=== PATIENT | female | born 1990 | race Caucasian/White ===

== ENCOUNTER 2016-08-04 13:16 | Emergency (ER) | payer BC, MEDICAID ==
--- NOTE | 2016-08-04 14:34 | UCPHY ---
[id number] CHIEF COMPLAINT: Sore throat HISTORY OF PRESENT ILLNESS: This is an immunocompetent 25-year-old female who has been ill for the last 9-10 days. Illness began with a cough that has now almost resolved. She occasionally coughs up phlegm that she describes as hard . However, her complaint today is of sore throat that has been present for the past few days, gradually worsening. She has had intermittent fever over the past few days. She also reports nasal congestion. She has had a mild headache. She does not have sinus pain or postnasal drip. She does not feel short of breath. She denies chest pain. She had a small swelling in front of her right ear a few weeks ago that was initially tender. The swelling persists but is no longer painful. He no earache or change in hearing. REVIEW OF SYSTEMS: A ten point review of systems was performed and is negative with the exception of the items mentioned in the HPI. Source: Patient Exam Limitations: No limitations - Personal History Tetanus Vaccine Date: < 10 years - Medical/Surgical History Hx Asthma: Yes Hx Chronic Respiratory Disease: No Hx Diabetes: No Hx Cardiac Disease: No Hx Renal Disease: No Hx Cirrhosis: No Hx Alcoholism: No Hx HIV/AIDS: No Hx Splenectomy or Spleen Trauma: No Other PMH: asthma. tonsillectomy. nausea. depression, bipolar, PTSD. insomnia - Family History Significant Family History: No pertinent family hx - Social History Smoking Status: Current every day smoker Additional Social History: She is here with her life partner. - Physical Exam Exam: General Appearance: Alert. Vital signs reviewed and normal. Eyes: Pupils equal and round, no conjunctival injection, no discharge. Anicteric. ENT, Mouth: Mucous membranes are moist, oropharynx is erythematous and mildly edematous. Her tonsils are absent. She is managing her secretions without difficulty. There is a small, 1 mm, papule in front of the right auricle. This is nontender. Neck: Mild anterior cervical lymphadenopathy, supple. Respiratory: Lungs are clear to auscultation; no wheezes, rales, or rhonchi. Cardiovascular: Regular rate and rhythm; no murmur, rub, or gallop. Gastrointestinal: Abdomen is soft and nontender, no masses or organomegaly, bowel sounds normal. Skin: Warm and dry, no rashes on exposed skin, normal color. Back: Nontender to palpation over the thoracolumbar spine. No CVAT. Extremities: No lower extremity edema, no calf tenderness or swelling. Neurological: Alert and oriented. Moving all four extremities easily and equally. Facial sensation intact to light touch. Psychiatric: Normal affect. Constitutional: Initial Vital Signs Temperature (C) 36.6 C 08/04/16 14:36 Heart Rate 62 08/04/16 14:36 Respiratory Rate 18 08/04/16 14:36 Blood Pressure 119/72 08/04/16 14:36 O2 Sat (%) 97 08/04/16 14:36 O2 Delivery Mode Room Air Allergies/Adverse Reactions: No Known Allergies Allergy (Verified 05/21/16 14:15) Home Medications: Medication Instructions Recorded PRILOSEC 03/15/16 Wellbutrin Sr 03/15/16 [place] Carbonate 05/21/16 Ondansetron Odt [Zofran Odt] 4 mg PO Q4PRN #8 tab 05/21/16 AZITHROMYCIN [Z-PACK] 500 mg PO DAILY #1 packet 08/04/16 Medical Decision Making ED Course/Re-evaluation: Healthy 25-year-old with almost 10 days of an upper respiratory/pharyngitis type illness. She is not toxic or ill-appearing. She is concerned about this illness because she is traveling to visit her elderly grandmother who has been ill. She does not want to relay an illness to her grandmother. After some discussion, I agreed to write a prescription for antibiotics. I did so after explaining that this is likely a viral illness and suggesting that she not fill the prescription unless she develops fever or worsening symptoms. Rapid strep testing was negative. She is able to manage her secretions, swallow, and remain hydrated. She has had her tonsils removed. I do not suspect retropharyngeal abscess or epiglottitis. She does not have other signs or symptoms of mononucleosis or influenza. Departure - Departure Disposition: Home, Routine, Self-Care Clinical Impression: Pharyngitis Qualifiers: Pharyngitis/tonsillitis etiology: unspecified etiology Qualifier Code: (J02.9) Acute pharyngitis, unspecified Condition: Good Instructions: Pharyngitis (ED) Referrals: Tee Madrigal MD [Primary Care Provider] - As per Instructions Prescriptions: AZITHROMYCIN [Z-PACK] 500 mg PO DAILY #1 packet - PQRS PQRS Measurement: Does not apply.
[2016-08-04 14:38] VITALS: BP 119/72; PULSE 62; RESP 18; TEMP 98; O2SAT 97
== END 2016-08-04 16:14 | disposition home or self-care (01) ==
LOC: CED 13:16
DX: J02.9 Acute pharyngitis, unspecified (principal); R09.81 Nasal congestion; F31.9 Bipolar disorder, unspecified; F43.10 Post-traumatic stress disorder, unspecified; J45.909 Unspecified asthma, uncomplicated; Z72.0 Tobacco use
CPT/HCPCS: 87880-PO; G0463-PO

== ENCOUNTER 2016-08-29 17:11 | Inpatient (IN) | payer BC, MEDICAID ==
[2016-08-29 17:55] LABS: % IMMATURE GRANULYOCYTES 0.3 % (0.0-1.1); ABSOLUTE IMMATURE GRANULOCYTES 0.02 10^3/uL (0.00-0.10); ADD DIFF? NO; ADD MORPH? NO; ADD SCAN? NO; ATYPICAL LYMPHOCYTE FLAG 30 (0-99); FRAGMENT RBC FLAG 0 (0-99); HEMATOCRIT 40.4 % (38.0-47.0); HEMOGLOBIN 13.9 g/dL (12.6-16.3); LEFT SHIFT FLG 0 (0-99); LIPEMIA HEMOLYSIS FLAG 90 (0-99); MEAN CELL HEMOGLOBIN 31.4 pg (27.9-34.1); MEAN CELL HEMOGLOBIN CONCENTR. 34.4 g/dL (32.4-36.7); MEAN CELL VOLUME 91.4 fL (81.5-99.8); MEAN PLATELET VOLUME 9.4 fL (8.7-11.7); PLATELET CLUMPS FLAG 10 (0-99); PLATELET COUNT 417 10^3/uL (150-400); RED BLOOD CELL COUNT 4.42 10^6/uL (4.18-5.33)
[2016-08-29 18:06] LABS: ANION GAP 9 mEq/L (8-16); CALCIUM 9.4 mg/dL (8.5-10.4); CARBON DIOXIDE 26 mEq/l (22-31); CHLORIDE 104 mEq/L (97-110); CREATININE 0.9 mg/dL (0.6-1.0); ETHANOL SERUM < 10 mg/dL (0-10); GLOMERULAR FILTRATION RATE > 60; GLUCOSE 76 mg/dL (70-100); LITHIUM 0.5 mEq/L (0.6-1.2); POTASSIUM 4.4 mEq/L (3.5-5.2); SALICYLATE < 1.0 mg/dL (2.0-20.0); SODIUM 139 mEq/L (134-144)
--- NOTE | 2016-08-29 18:20 | EDPHY ---
H & P Stated Complaint: MH eval SI Source: Patient Exam Limitations: No limitations - Personal History LMP (Females 10-55): Now Current Tetanus/Diphtheria Vaccine: Unsure Current Tetanus Diphtheria and Acellular Pertussis (TDAP): Unsure Tetanus Vaccine Date: < 10 years - Medical/Surgical History Hx Asthma: Yes Hx Chronic Respiratory Disease: No Hx Diabetes: No Hx Cardiac Disease: No Hx Renal Disease: No Hx Cirrhosis: No Hx Alcoholism: No Hx HIV/AIDS: No Hx Splenectomy or Spleen Trauma: No Other PMH: asthma. tonsillectomy. nausea. depression, bipolar, PTSD. insomnia - Social History Smoking Status: Current every day smoker HPI/ROS: CHIEF COMPLAINT: suicide ideation HISTORY OF PRESENT ILLNESS: notes increasing depression after Trileptal was added at the end of July. She feels that it has caused more cyclical highs and lows, increasing depression. Due to this she feels even more hopeless and depressed than she has in the past. She feels that she has been thinking about killing herself, with a specific plan of ingesting hemlock. she does report the intent of wanting to do so. She had a plan of doing so today. She went to [facility], they sent her here for medical clearance for inpatient evaluation. She has no specific Systemic complaints. She feels the symptoms were worse because the medication and has no alleviating factors. no other associated complaints or modifying factors. REVIEW OF SYSTEMS: Ten systems reviewed and are negative unless otherwise noted in the HPI EXAMINATION General Appearance: Alert, no distress , well-kept Head: normocephalic, atraumatic Eyes: Pupils equal and round, no conjunctival pallor or injection. EOMs intact. ENT, Mouth: Mucous membranes moist . No erythema or edema. No petechiae Neck: Normal inspection, supple, non-tender. No meningismus Respiratory: Lungs are clear to auscultation. No wheezing, rhonchi, crackles Cardiovascular: Regular rate and rhythm. No murmur. Pulses intact distally Gastrointestinal: Abdomen is soft and nontender. No CVA tenderness Neurological: A&O, nonfocal, normal gait, strength is 5/5 in all limbs Skin: Warm and dry, no rash. No petechiae or purpura Extremities: Nontender, no pedal edema Psychiatric: flat affect with depressed mood and suicidal ideation. Suicide thoughts include ingestion of him walk with intent. DIFFERENTIAL DIAGNOSES: Including but not limited to Suicidal ideation, major depression, mood disorder, abnormal lithium level, adverse drug reaction MDM: 6:20 p.m. history of major depression with suicidal ideation. She does have an alteration in her medication recently with addition of travel. She feels that her mood is directly related to this. She has not changed or missed her lithium recently. The lithium level is normal 1 month ago. She is resting comfortably and cooperative at this time. She does have intent to harm herself , thus I have completed an M1. Labs are pending at this time. 6:45 p.m. labs are all within normal limits. [place] is very mildly low at 0.5. She is in no acute distress, resting comfortably and cooperative at time. She has been cleared for medical evaluation. Nurse will be notified so that they can contact [facility]. 11:45 p.m. I have periodically checked on the patient over the past 3 hours. She has been resting comfortably in no acute distress. She has remained calm and cooperative the entire time. She has been watched television visiting with a friend at bedside. She has made no requests, has been no complaints and remains voluntary and her need of care. Labs were discussed and she has no acute findings. [place] is mildly low but no significant abnormalities. She has been evaluated by [facility], she has been accepted by Dr. Spears to [address] [place] [address] at [facility]. She will be transferred by ambulance to their facility. Intolerances been completed in the nurse has called report. She will be transferred over there in stable condition for psychiatric evaluation. I did complete an M1 for this patient. SUPERVISION: Patient was evaluated in conjunction with the supervising physician. Please see their note for details. (Sahil Barakat) Constitutional: Initial Vital Signs Temperature (C) 97.3 F 08/29/16 17:13 Heart Rate 83 08/29/16 17:13 Respiratory Rate 14 08/29/16 17:13 Blood Pressure 128/72 H 08/29/16 17:13 O2 Sat (%) 97 08/29/16 17:13 O2 Delivery Mode Room Air Allergies/Adverse Reactions: No Known Allergies Allergy (Verified 08/29/16 19:54) Home Medications: Medication Instructions Recorded PRILOSEC 40 mg PO DAILY 03/15/16 [place] Carbonate 900 mg PO HS 05/21/16 Trileptal 300mg (*) 300 mg PO DAILY 08/29/16 Trileptal 300mg (*) 900 mg PO HS 08/29/16 Medical Decision Making Other Provider: The patient was evaluated and managed by the physician bilingual teacher assistant. I have reviewed this chart and I agree with the findings and plan of care as documented , as indicated by my signature. I am the secondary supervising physician. ( Sherri Saavedra) - Data Points Laboratory Results: Laboratory Results 08/29/16 17:30 08/29/16 17:30 08/29/16 17:30 WBC 7.78 10^3/uL (3.80-9.50) RBC 4.42 10^6/uL (4.18-5.33) Hgb 13.9 g/dL (12.6-16.3) Hct 40.4 % (38.0-47.0) MCV 91.4 fL (81.5-99.8) MCH 31.4 pg (27.9-34.1) MCHC 34.4 g/dL (32.4-36.7) RDW 12.0 % (11.5-15.2) Plt Count 417 H 10^3/uL (150-400) MPV 9.4 fL (8.7-11.7) Neut % (Auto) 56.4 % (39.3-74.2) Lymph % (Auto) 29.3 % (15.0-45.0) Coffee % (Auto) 9.8 % (4.5-13.0) Eos % (Auto) 3.7 % (0.6-7.6) Baso % (Auto) 0.5 % (0.3-1.7) Nucleat RBC Rel Count 0.0 % (0.0-0.2) Absolute Neuts (auto) 4.39 10^3/uL (1.70-6.50) Absolute Lymphs (auto) 2.28 10^3/uL (1.00-3.00) Absolute Monos (auto) 0.76 10^3/uL (0.30-0.80) Absolute Eos (auto) 0.29 10^3/uL (0.03-0.40) Absolute Basos (auto) 0.04 10^3/uL (0.02-0.10) Absolute Nucleated RBC 0.00 10^3/uL (0-0.01) Immature Gran % 0.3 % (0.0-1.1) Immature Gran # 0.02 10^3/uL (0.00-0.10) Sodium 139 mEq/L (134-144) Potassium 4.4 mEq/L (3.5-5.2) Chloride 104 mEq/L (97-110) Carbon Dioxide 26 mEq/l (22-31) Anion Gap 9 mEq/L (8-16) BUN 12 mg/dL (7-23) Creatinine 0.9 mg/dL (0.6-1.0) Estimated GFR > 60 Glucose 76 mg/dL (70-100) Calcium 9.4 mg/dL (8.5-10.4) Beta HCG, Qual NEGATIVE Urine Color YELLOW Urine Appearance CLEAR Urine pH 7.0 (5.0-7.5) Ur Specific [place] 1.018 (1.002-1.030) Urine Protein NEGATIVE (NEGATIVE) Urine Ketones NEGATIVE (NEGATIVE) Urine Blood 1+ H (NEGATIVE) Urine Nitrate NEGATIVE (NEGATIVE) Urine Bilirubin NEGATIVE (NEGATIVE) Urine Urobilinogen NEGATIVE EU (0.2-1.0) Ur Leukocyte Esterase NEGATIVE (NEGATIVE) Urine RBC 1-3 /hpf (0-3) Urine WBC 1-3 /hpf (0-3) Ur Epithelial Cells TRACE /lpf (NONE-1+) Urine Bacteria TRACE H /hpf (NONE SEEN) Urine Mucus TRACE /lpf (NONE-1+) Ur Culture Indicated? NOT INDICATED (NI) Urine Glucose NEGATIVE (NEGATIVE) Salicylates < 1.0 L mg/dL (2.0-20.0) Urine Opiates Screen NEGATIVE (NEGATIVE) Acetaminophen < 10 L mcg/mL (10.0-30.0) Urine Barbiturates NEGATIVE (NEGATIVE) Ur Phencyclidine Scrn NEGATIVE (NEGATIVE) Ur Amphetamine Screen NEGATIVE (NEGATIVE) U Benzodiazepines Scrn NEGATIVE (NEGATIVE) [place] 0.5 L mEq/L (0.6-1.2) Urine Cocaine Screen NEGATIVE (NEGATIVE) U Marijuana (THC) Screen NEGATIVE (NEGATIVE) Ethyl Alcohol < 10 mg/dL (0-10) Departure - Departure Disposition: [facility] IP Clinical Impression: Severe major depression, Suicidal ideation Condition: Good Referrals: Tee Madrigal MD [Primary Care Provider] - As per Instructions
[2016-08-29 18:30] LABS: COLOR YELLOW; LEUKOCYTE ESTERASE,URINE NEGATIVE (NEGATIVE); NITRITE,URINE NEGATIVE (NEGATIVE)
[2016-08-29 18:37] LABS: BACTERIA TRACE /hpf (NONE SEEN); MUCUS TRACE /lpf (NONE-1+)
[2016-08-30] MEDS ORDERED: OLANZapine DISINTEGR 5 MG TAB PO PRN (01:05)
[2016-08-30] MEDS ORDERED: MAG HYDROX/AL HYDROX/SIMETH 30 ML UDCUP PO PRN (01:06)
[2016-08-30] MEDS ORDERED: NICOTINE POLACRILEX 2 MG GUM B PRN (01:06)
[2016-08-30] MEDS ORDERED: LORazepam 0.5 MG TAB PO PRN (01:06)
[2016-08-30] MEDS ORDERED: ACETAMINOPHEN 325 MG TAB PO PRN (01:06)
[2016-08-30] MEDS ORDERED: MAGNESIUM HYDROXIDE 30 ML UDCUP PO PRN (01:06)
[2016-08-30] MEDS ORDERED: diphenhydrAMINE 25 MG CAP PO PRN (01:09)
[2016-08-30] MEDS ORDERED: MELATONIN 3 MG TAB PO PRN (01:09)
[2016-08-30] MEDS: LITHIUM CARBONATE 300 MG CAP PO SCH ×2 (01:17→18:13)
[2016-08-30 01:51] VITALS: BP 133/77; PULSE 71; RESP 16; TEMP 98.5; O2SAT 98
[2016-08-30] MEDS: LURASIDONE HCL 20 MG TAB PO SCH (13:03)
--- NOTE | 2016-08-30 16:50 | BAPA ---
[f rep st] ADMISSION PSYCHIATRIC ASSESSMENT CANCELED BY DICTATOR /[id number]/MODL
--- NOTE | 2016-08-30 17:41 | BAPA ---
[f rep st] ADMISSION PSYCHIATRIC ASSESSMENT DATE OF SERVICE: 08/30/2016 CHIEF COMPLAINT: "I'm not doing very well." HISTORY OF PRESENT ILLNESS: The patient is a 25-year-old female with a history of mood pro blems and possible borderline personality. She was put on Trileptal about 6 weeks prior to admission due to agitation and self-harming. She apparently had been feeling more labile and irritable, and h ad been banging her head. She saw her outpatient provider, Marilyn العلي, nurse practitioner, who prescribed the Trileptal and increased it to 1200 mg. The patient initially felt calmer, and her charanjit f-injurious behaviors resolved. Shortly after this, however, she began "rapid cycling" and felt she was having excessive mood swings. She felt depressed at times and other times, she had excessive leonora rgy and was up cleaning the house at all hours. She discontinued the medication about 5 days ago. I n conversation with Marilyn العلي, she agreed to start Depakote. The patient ultimately did not st art it, however, because of concerns that it would cause similar problems to the Trileptal due to its similar action and also for weight gain. The patient reported some recent "dissociating." She stat es "I was feeling like I was in a dream." She has described some derealization and depersonalization , and stated this had been increasing but was not as bad as it has been in the past. She began isola ting in her home, was active socially and at school, and withdrew from her classes at [employer]. She complains of decreased appetite, poor attention to concentration, poor energy an d motivation, anhedonia, and over the last week notes an increasingly depressed mood with the emergen ce of suicidal ideations, with a plan to drink hemlock tea. She states she knows where she can obtai n hemlock, "it grows everywhere." She presented to the emergency department after a conversation wit rikki العلي for the consideration of inpatient hospitalization due to her suicidality and unsta ble mood. Today, the patient states that she is motivated for change and wants to find a possible me dication intervention that could help stabilize her moods and improve the overall quality of her mood . PAST PSYCHIATRIC HISTORY: The patient has had more than 20 previous hospitalizations, the last of wh ich was in February of 2016 at [facility]. She has had 2 previous suicide attempts, the last which was 5 years ago by OD and one 7-8 years ago by hanging. She sees Zee Ndiaye in psychotherapy weekly for e last 7 months. She has previously tried Zoloft, Lexapro, Wellbutrin, Trileptal, Lamictal, Abilify, Zyprexa, Risperdal, Haldol, Neurontin, and Prazosin. She states that she felt the Lamictal was help ful, but she developed a red rash on the her right facial cheek and states that they stopped it becau se of concern for the rash. ALLERGIES: No known medical allergies. CURRENT MEDICATIONS: Carrizales carbonate 900 mg daily for the last year, Prilosec 40 mg daily, melaton in 6 mg for sleep, and Benadryl 50 mg for sleep. PAST MEDICAL HISTORY: Noncontributory with no history of central nervous system disease. SOCIAL HISTORY: The patient was recently a student at [employer] studying [employer] on. She withdrew from her classes due to her mood swings, mainly depression, where she was spending time in bed and missed classes. She is really from [place], [place], and moved to [place] with her partner at the time to get out of [place]. She and her partner split up, but remain friends. She now has a new partner and lives with the partner and her family. They have been together for 1-1 /2 years. She describes herself as "sexually queer" and is currently in a homosexual relationship ere she states she is engaged to her partner to be . Her partner works at the [employer] where she met her as she was working there as direct care staff as well. She states this is a posit cuong and supportive relationship. The patient has a few other close friends in the area. She enjoys school and World War [employer] history. SUBSTANCE ABUSE HISTORY: The patient has a significant history of marijuana and alcohol use in her a dolescence, but does not use substances currently. FAMILY HISTORY: The patient is adopted. ADMISSION LABORATORY: CBC is normal. Serum chemistries are normal. Beta-HCG is negative. Urinalys is shows no evidence of infection. Urine drug screen is negative for all substances. Alcohol is les s than detectable. Carrizales was 0.5. MENTAL STATUS EXAMINATION: Reveals a healthy-appearing, robust female. She is adequately groomed and appropriately dressed. She interacts well with the examiner, maintaining good eye contac t and an overall calm and pleasant demeanor. Her affect is blunted, somewhat dysphoric, stable, and appropriate. Her mood is described as "depressed." Her thought process is linear and goal-directed. Her thought content reveals no evidence of psychosis. She is alert and oriented to person, place, time, and situation. Her sensorium is clear. Her intellect appears to be at least average as eviden tu by her educational history, fund of knowledge, and vocabulary. She continues to endorse active t houghts of suicide with a plan to drink hemlock tea. Her insight and judgment appear to be fair to g ood. IMPRESSION: Bipolar type 2 disorder, most recent episode depressed, severe, without psychosis. Poss ible dissociative disorder. Possible post-traumatic stress disorder, chronic type. Marginal support s. Academic problems. The patient is a 25-year-old female with a long history of mood problems. She presents at this time in what appears to be a depressive phase of a bipolar type 2 illness. I have reviewed with her numerous options for ongoing medication treatment including a retrial of Lamictal, as I am not c onvinced at all that the rash she describes was due to Lamictal or a trial of Latuda, as this may pro vide some benefit for her mood, both in quality and stability without as much of a problem with weigh t gain as she has experienced in the past with Zyprexa and Risperdal. The patient prefers the Latuda as it has a shorter titration period and she is still concerned about the rash. The risks, benefits , and alternatives of this were reviewed with her at length, and she agrees to proceed. We matta yonatany discussed the warnings for suicidality in young adults, though they do not apply at her age of 25 . PLAN: 1. Admit to the behavioral health services inpatient unit on an M1 hold. 2. Initiate therapy with Latuda 20 mg daily starting now. 3. Engage in individual, group, and milieu psychotherapies. 4. Monitor for safety on SP1. 5. Active discharge planning. 6. Estimated length of stay is 2-3 days. /[id number]/MODL
--- NOTE | 2016-08-30 20:01 | BCON ---
[f rep st] BEHAVIORAL HEALTH CONSULTATION INTERNAL MEDICINE CONSULTATION REFERRING PHYSICIAN: Юлия Barrera MD REASON FOR CONSULTATION: Medical clearance for inpatient behavioral health stay. HISTORY OF PRESENT ILLNESS: Ms. Duggan came to the emergency department with suicidal ideation. She had been on a new psychiatric medication, oxcarbazepine , for several weeks and had felt that it was increasing her mood swings. She was evaluated by the mental health team and admitted for further psychiatric care. She is currently without any acute medical complaints. PAST MEDICAL HISTORY: 1. Mental health issues with diagnoses of major depression and bipolar disorder. 2. Asthma. 3. History of vomiting for a 2-month period, after which she was placed on omeprazole. 4. Head injuries, partially due to self-harm. PAST SURGICAL HISTORY: She has had a tonsillectomy. MEDICATIONS: 1. Trileptal 300 mg p.o. q. day and 900 mg p.o. q.h.s. 2. Omeprazole 40 mg p.o. q. day. 3. [place] 900 mg p.o. q.h.s. ALLERGIES: There are no known drug allergies. SOCIAL HISTORY: She lives with a partner and her partner's family. She is a former smoker. She has a history of alcohol use. She is on disability for mental illness. She was recently enrolled in school, but did not continue, at a local community college. REVIEW OF SYSTEMS: She denies cough, dyspnea, abdominal pain, nausea, vomiting , constipation, or diarrhea; and otherwise, a 10-point review of systems is negative. She is currently menstruating. PHYSICAL EXAM: VITAL SIGNS: Blood pressure at 1:51 this morning was 133/77. Heart rate was 71. Respiratory rate was 16. Oxygen saturation was 98% on room air. Temperature was 36.9 degrees centigrade. Her weight is 74.8 kg for a body mass index of 26.6. GENERAL: An overweight woman, who appears her chronologic age, cooperative, and in no acute distress. HEENT: Extraocular movements are intact. Pupils are equal, round, and reactive to light. Mucous membranes are moist. Dentition is in good condition. NECK: Supple. HEART: There is a regular rate and rhythm with no murmurs, rubs, or gallops. LUNGS: Clear to auscultation bilaterally. ABDOMEN: Soft, nontender, nondistended with normoactive bowel sounds. EXTREMITIES: There is no cyanosis, clubbing, or edema. NEUROLOGIC: She is alert and oriented x3. She has a flat affect. Cranial nerves 2 through 12 are grossly intact. There is no focal weakness, and sensation is intact to light touch. LABORATORY STUDIES: Drawn in the emergency department. CBC was overall within normal limits, but for a slightly elevated platelet count of 417, likely of no clinical significance. Serum chemistry revealed normal renal function and electrolytes. Beta HCG was negative for . Urinalysis was positive for blood and trace bacteria; it was otherwise negative. Toxicology in the serum was negative for salicylates, acetaminophen, or ethyl alcohol. [place] level was subtherapeutic at 0.5. Toxicology in the urine was negative for any substances of abuse. ASSESSMENT AND RECOMMENDATIONS: 1. Mental health issues. Pending further evaluation and management per Psychiatry and the mental health team. 2. Asthma. By history, she is not on any current medications and denies any symptoms. There is no indication for any further evaluation or treatment, unless she develops respiratory symptoms. 3. History of vomiting and possible gastroesophageal reflux disorder. Continue omeprazole. I see no medical contraindications to this patient's continued stay on the inpatient behavioral health unit or to any psychiatric medications or procedures. Thank you very much for including me in the care of this patient, and please do not hesitate to contact me or the hospitalist service should there be any need for further medical evaluation. /[id number]/MODL MTDD
[2016-08-30] MEDS: diphenhydrAMINE 25 MG CAP PO SCH (22:01)
[2016-08-30] MEDS: MELATONIN 3 MG TAB PO SCH (22:01)
[2016-08-31] MEDS: LURASIDONE HCL 20 MG TAB PO SCH (12:32)
--- NOTE | 2016-08-31 13:32 | SOAPPROG ---
SOAP Progress Note Assessment/Plan: Assessment: Plan: 08/31/16 13:32 Isolating. Appears depressed. SI persists. CCM. Subjective: Pt seen, discussed with staff. Isolating in her room. Very quiet, not interacting with staff or fellow patients. Reports no SE's from [facility]. Case reviewed with Marilyn العلي who is in favor of treatment plan. Objective: Vital Signs Temp Pulse Resp BP Pulse Ox 36.9 C 71 16 133/77 H 98 08/30/16 01:51 08/30/16 01:51 08/30/16 01:51 08/30/16 01:51 08/30/16 01:51 - Time Spent With Patient Time Spent With Patient: 15" - Pending Discharge Pending Discharge Within 24 Hours: No Pending Discharge Within 48 Hours: No ICD10 Worksheet Patient Problems: Problems Problem Status Diagnosed Severe major depression Acute Suicidal ideation Acute
[2016-08-31] MEDS: LITHIUM CARBONATE 300 MG CAP PO SCH (17:43)
[2016-08-31] MEDS: diphenhydrAMINE 25 MG CAP PO SCH (21:55)
[2016-08-31] MEDS: MELATONIN 3 MG TAB PO SCH (21:55)
[2016-09-01] MEDS: LURASIDONE HCL 20 MG TAB PO SCH (14:14)
[2016-09-01] MEDS: LITHIUM CARBONATE 300 MG CAP PO SCH (17:51)
[2016-09-01] MEDS: diphenhydrAMINE 25 MG CAP PO SCH (21:25)
[2016-09-01] MEDS: MELATONIN 3 MG TAB PO SCH (21:25)
--- NOTE | 2016-09-02 11:49 | SOAPPROG ---
SOAP Progress Note Assessment/Plan: Assessment: Plan: 08/31/16 13:32 Isolating. Appears depressed. SI persists. CCM. 09/02/16 11:49 Remains depressed. SI persists. CCM. Hope to see benefit from Latuda augmentation soon. Subjective: LATE ENTRY FOR 09/01/16 Pt seen, discussed with staff. Reports no subjective change in mood. Isolating in room, not attending groups. Sleeps a lot. Reading a book when I enter today. Engaging and conversant with me, though not with staff. Discussed treatment plan. Tolerating Latuda well. Objective: Vital Signs Temp Pulse Resp BP Pulse Ox 36.9 C 71 16 133/77 H 98 08/30/16 01:51 08/30/16 01:51 08/30/16 01:51 08/30/16 01:51 08/30/16 01:51 - Time Spent With Patient Time Spent With Patient: 25" - Pending Discharge Pending Discharge Within 24 Hours: No ICD10 Worksheet Patient Problems: Problems Problem Status Diagnosed Severe major depression Acute Suicidal ideation Acute
[2016-09-02] MEDS: LURASIDONE HCL 20 MG TAB PO SCH (12:17)
--- NOTE | 2016-09-03 03:45 | BDS ---
[f rep st] BEHAVIORAL HEALTH DISCHARGE SUMMARY REASON FOR ADMISSION: Patient is a 25-year-old female, who was referred to the emergency d epartment by her outpatient psychiatric provider, Hakan Montanez, due to worsening mood and thoughts of suicide. She recently had a trial of Trileptal which she felt like made her become rapid cycling and had stopped this. She was banging her head and was having increased thoughts of suicide. Ruth Chin recommended that she start Depakote, but she was hesitant to do this because of her bad exp erience with Trileptal. A full description of the events preceding admission can be found in her adm ission history, dated 08/30/2016. ADMITTING DIAGNOSES: Bipolar type 2 disorder, most recent episode depressed, severe, without psychos is. Possible dissociative disorder. Possible posttraumatic stress disorder, chronic type. Marginal supports, and academic problems. ADMITTING PHYSICAL EXAMINATION: Performed by Dr. Jm Suarez revealed no acute physical findings . ADMISSION LABORATORY: CBC was normal with the exception of a platelet count slightly up at 417,000. Serum chemistries were normal. Beta hCG was negative. Urinalysis showed no evidence of infection, and urine drug screen was negative for all substances. Badger on admission was 0.5. HOSPITAL COURSE: Patient was admitted to the [facility] on an M1 hold. She was pleasant, cooperative, and participated actively in my initial evaluation with her. She was , however, quite reserved with others. She flatly refused to speak when she was interviewed by the c are coordinator on the weekend, and spoke very little to the nursing staff. She was noted to brighte n significantly when her partner visited and they interacted appropriately. I reviewed with her pote amos medication changes or additions, and discussed this also with Hakan العلي. It was thought t hat a trial of either Lamictal or possibly Latuda would be helpful, and the patient preferred the Lat uda. She had decided that HAILY active anticonvulsants were likely not good for her, as she had a bad experience with Trileptal. She was also concerned about the rash. Latuda was started at 20 mg belen y, and she tolerated this well. The patient's hospital course was uncomplicated. She interacted little with others and did not atten d groups until the last day. She generally sat in her room either lying in bed or reading, and was v isited by her significant other on a daily basis at lunchtime. As mentioned, she interacted well wit h me and we had several concessions discussing her stresses, including school, and her goals of reach ing a euthymic state prior to a short semester starting in October. On the day of discharge, patient was seen with her significant other in a discharge planning meeting. They were both in agreement that she was stable and could return to their home. Her M1 hold was to be up in the middle of the night, and I did not see criteria to place her on a short-term certificat ion. She was disavowing any active suicidality, had made successful transition to Latuda, and was ho peful about the future and forward thinking. CONDITION ON DISCHARGE: Stable. The patient's affect was brighter and she is having no active thoug hts of suicide. DISCHARGE MEDICATIONS: Latuda 20 mg daily, lithium carbonate 900 mg at bedtime, melatonin 6 mg at be dtime, and Benadryl 50 mg at bedtime. DISCHARGE DIAGNOSES: Bipolar 2 disorder, most recent episode depressed, severe, without psychosis. Possible dissociative disorder, marginal supports and academic problems. DISPOSITION: Patient left the hospital with her significant other. FOLLOWUP: Followup was with her outpatient therapist, as scheduled by the animal care giver. The car e coordinator also gave her information on equine therapy that she was interested in pursuing. LEGAL COURSE: Patient was discharged prior to the expiration of her M1 hold. /[id number]/MODL
== END 2016-09-02 13:57 | disposition home or self-care (01) | DRG 880 ==
LOC: BBEH 08-30 00:30
PROVIDERS: ADMIT Psychiatry & Neurology Behavioral Neurology & Neuropsychiatry; ATTEND Psychiatry & Neurology Psychiatry
DX: R45.851 Suicidal ideations (principal); F31.4 Bipolar disorder, current episode depressed, severe, without psychotic features; F44.9 Dissociative and conversion disorder, unspecified; F43.12 Post-traumatic stress disorder, chronic; J45.909 Unspecified asthma, uncomplicated; Z87.891 Personal history of nicotine dependence
CPT/HCPCS: 80305; G0480

== ENCOUNTER 2017-08-22 17:08 | Emergency (ER) | payer BC, OTHER ==
[2017-08-22 17:27] VITALS: RESP 18
[2017-08-22] MEDS ORDERED: IPRATROPIUM/ALBUTEROL 3 ML DEYVIAL IH ONE (17:30)
[2017-08-22] MEDS ORDERED: predniSONE 20 MG TAB PO ONE (17:54)
--- NOTE | 2017-08-22 18:24 | EDPHY ---
H & P Stated Complaint: Asthmatic-SOB for week. Increased inhaler use, Time Seen by Provider: 08/22/17 17:22 HPI/ROS: CHIEF COMPLAINT: Short of breath History by patient HISTORY OF PRESENT ILLNESS: 26-year-old woman with a history of asthma presents complaining of worsening coughing and wheezing over the past 4 days. Patient states that she had asthma as a child but this had improved until the past few months that she has had several exacerbations. She was started on inhaled steroids per her primary care physician July but she felt this was making things worse that she stop them. Over the past few days she has been using her inhaler every 4 hr with minimal relief. She also has a cough which she describes as nonproductive. There has been no fever, chills, nausea vomiting or other URI symptoms. Patient has not been on oral steroids in the past and has never been admitted overnight for her asthma. She quit smoking a year and half ago. REVIEW OF SYSTEMS: As in HPI, and all other systems reviewed and are negative Source: Patient - Personal History LMP (Females 10-55): 1-7 Days Ago Current Tetanus/Diphtheria Vaccine: Unsure Current Tetanus Diphtheria and Acellular Pertussis (TDAP): Unsure Tetanus Vaccine Date: < 10 years - Medical/Surgical History Hx Asthma: Yes Hx Chronic Respiratory Disease: No Hx Diabetes: No Hx Cardiac Disease: No Hx Renal Disease: No Hx Cirrhosis: No Hx Alcoholism: No Hx HIV/AIDS: No Hx Splenectomy or Spleen Trauma: No Other PMH: asthma, GERD. tonsillectomy. depression, bipolar, PTSD. insomnia - Social History Smoking Status: Former smoker - Physical Exam Exam: General Appearance: Alert, well appearing, speaking full sentences. Head: normocephalic, atraumatic Eyes: Pupils equal and round, reactive to light, no pallor or injection. Mouth: Mucous membranes moist. Respiratory: Normal, effort, lungs are clear to auscultation. No wheezes, rales or rhonchi. No chest wall tenderness Cardiovascular: Regular rate and rhythm. S1, S2, no murmurs, gallops or rubs appreciated Gastrointestinal: Abdomen is soft and nontender, no masses, bowel sounds normal. Back: No CVA tenderness, no bony tenderness Neurological: Awake, alert and oriented x 3, no pronator drift, normal gait, no pronator drift Skin: Warm and dry, no rashes. Musculoskeletal: No deformities or tenderness. Extremities: full range of motion, no edema, no tenderness, DP2+ bilat Psychiatric: Patient has normal affect, there is no agitation. Constitutional: Initial Vital Signs Temperature (C) 37.0 C 08/22/17 17:25 Heart Rate 77 08/22/17 17:25 Respiratory Rate 18 08/22/17 17:25 Blood Pressure 114/76 08/22/17 17:25 O2 Sat (%) 97 08/22/17 17:25 O2 Delivery Mode Room Air Allergies/Adverse Reactions: No Known Allergies Allergy (Verified 08/22/17 17:27) Home Medications: Medication Instructions Recorded T[place]olote Carbonate [Tecolote 900 mg PO HS #90 cap 09/02/16 Carbonate Cap 300 mg (*)] Albuterol 08/22/17 Atrovent Hfa (*) 08/22/17 Lamictal 08/22/17 Omeprazole 08/22/17 Prazosin HCl 08/22/17 Wellbutrin Sr 08/22/17 predniSONE 40 mg PO DAILY #8 tablet 08/22/17 traZODone 08/22/17 Medical Decision Making - Diagnostics Imaging Results: Imaging Impressions Chest X-Ray 08/22/17 17:30 Impression: Minimal bronchitis. No other findings for acute cardiopulmonary abnormality. ED Course/Re-evaluation: 26-year-old woman with a history of asthma presents with persistent wheezing. Patient was wheezing in triage was given a neb prior to my evaluation. On re- evaluation by me after the nebulizer treatment there was no wheezing and the patient was feeling better. There is no evidence of hypoxia. Chest x-ray showed no evidence of pneumonia or pneumothorax. Patient was started on oral steroids for her acute asthma exacerbation. On re-evaluation she was still feeling "tight "although her lungs were clear. Patient was given a 2nd neb for symptomatic treatment. We discussed home care and return precautions. She has an appointment pending with her primary care physician on Friday which I am encouraged her to keep for recheck given her recent asthma flare. Patient understands and is agreeable to this plan. - Data Points Medications Given: Discontinued Medications Albuterol (Proventil Neb) 3 ml IH EDNOW ONE Stop: 08/22/17 18:30 Last Admin: 08/22/17 18:33 Dose: 3 ml Albuterol/Ipratropium (Duoneb) 3 ml IH EDNOW ONE Stop: 08/22/17 17:31 Last Admin: 08/22/17 17:34 Dose: 3 ml Prednisone (Prednisone) 40 mg PO EDNOW ONE Stop: 08/22/17 17:55 Last Admin: 08/22/17 18:07 Dose: 40 mg Departure - Departure Disposition: Home, Routine, Self-Care Clinical Impression: Exacerbation of asthma Qualifiers: Asthma severity: mild Asthma persistence: unspecified Qualified Code(s): J45.901 - Unspecified asthma with (acute) exacerbation Condition: Good Instructions: Asthma (ED) Additional Instructions: You were seen by Dr. Chanelle Byrd today. Take prednisone as prescribed for the next 4 days. Use your inhaler as needed. Do not smoke. Follow up with primary care physician as scheduled on Friday for re-evaluation and sooner in the emergency department if you get worse over the weekend. Return for any worsening or new concerns. Referrals: MATTEO PEREZ,. [Primary Care Provider] - As per Instructions Prescriptions: predniSONE 40 mg PO DAILY #8 tablet
[2017-08-22] MEDS ORDERED: ALBUTEROL 3 ML DEYVIAL IH ONE (18:29)
[2017-08-22 18:50] VITALS: BP 113/70; PULSE 78; TEMP 98.2; O2SAT 96
== END 2017-08-22 19:00 | disposition home or self-care (01) ==
LOC: CED 17:08
DX: J45.901 Unspecified asthma with (acute) exacerbation (principal); Z87.891 Personal history of nicotine dependence
CPT/HCPCS: 71046-PO; J7512; J7613

== ENCOUNTER 2018-08-01 21:28 | Emergency (ER) | payer BC, OTHER ==
[2018-08-01] MEDS ORDERED: NS 1,000 ML IV ONE (21:41)
[2018-08-01] MEDS ORDERED: ONDANSETRON DISINTEGRATING 4 MG TAB ONE (21:49)
[2018-08-01] MEDS ORDERED: ONDANSETRON DISINTEGRATING 4 MG TAB PO ONE (21:52)
[2018-08-01] MEDS ORDERED: METOCLOPRAMIDE 10 MG/2 ML VIAL IVP ONE (21:53)
--- NOTE | 2018-08-01 23:02 | EDPHY ---
H & P Stated Complaint: N/V x 1 day Time Seen by Provider: 08/01/18 21:40 HPI/ROS: This patient reports nausea and vomiting over the past 24 hr. She reports ongoing nausea currently. She feels she she likely has a viral illnesses her mother had vomiting last week. The patient had a Zofran sublingual at 2:00 p.m. And again at 90 min prior to arrival with to have ongoing symptoms despite this. She does report that she vomited several times over the past 24 hr. She developed a headache after vomiting for half a day that feels similar to prior headaches achy in nature frontal, 5/10 intensity that she attributes to dehydration. She also reports mild diffuse crampy abdominal discomfort that started after the vomiting and is mild in intensity. ROS: Constitutional: No high fevers or chills. HEENT: No recent URI symptoms. Pulmonary: No coughing or shortness of breath Cardiovascular: She denies lightheadedness or chest pain. No lower extremity swelling. GI: No hematemesis or coffee-ground emesis. No dark tarry stools. : No dysuria, frequency urgency. 10 point review of symptoms is performed and otherwise negative with exception of pertinent positives and negatives listed in HPI and ROS Source: Patient Exam Limitations: No limitations - Personal History LMP (Females 10-55): 1-7 Days Ago Current Tetanus/Diphtheria Vaccine: Yes Current Tetanus Diphtheria and Acellular Pertussis (TDAP): Yes Tetanus Vaccine Date: < 10 years - Medical/Surgical History Hx Asthma: Yes Hx Chronic Respiratory Disease: No Hx Diabetes: No Hx Cardiac Disease: No Hx Renal Disease: No Hx Cirrhosis: No Hx Alcoholism: No Hx HIV/AIDS: No Hx Splenectomy or Spleen Trauma: No Other PMH: asthma, GERD. tonsillectomy. depression, PTSD. - Social History Smoking Status: Heavy smoker Alcohol Use: Rarely Drug Use: Marijuana - Physical Exam Exam: General Appearance: Alert, no distress. Eyes: Pupils equal and round no pallor or injection. ENT, Mouth: Mucous membranes dry. Respiratory: There are no retractions, lungs are clear to auscultation. Cardiovascular: Regular rate and rhythm. Gastrointestinal: Abdomen is soft and nontender, no masses, bowel sounds normal. Neurological: GCS 15. No focal deficits. Skin: Warm and dry, no rashes. Musculoskeletal: Neck is supple nontender. Extremities are symmetrical, full range of motion. Psychiatric: Mood and affect are normal DIFFERENTIAL DIAGNOSIS: After history and physical exam differential diagnosis was considered for viral illness, , UTI, gastritis Constitutional: Initial Vital Signs Temperature (C) 36.6 C 08/01/18 21:40 Heart Rate 76 08/01/18 21:40 Respiratory Rate 16 08/01/18 21:40 Blood Pressure 128/81 H 08/01/18 21:40 O2 Sat (%) 97 08/01/18 21:40 O2 Delivery Mode Room Air Allergies/Adverse Reactions: No Known Allergies Allergy (Verified 08/22/17 17:27) Home Medications: Medication Instructions Recorded T[place]an Carbonate [Tappan 900 mg PO HS #90 cap 09/02/16 Carbonate Cap 300 mg (*)] Lamictal 08/22/17 Omeprazole 08/22/17 Prazosin HCl 08/22/17 Wellbutrin Sr 08/22/17 traZODone 08/22/17 Ondansetron Odt [Zofran Odt] 4 - 8 mg PO Q4PRN PRN #4 tab 08/01/18 Medical Decision Making ED Course/Re-evaluation: IV normal saline bolus x1 L, Zofran 4 mg ODT prior to IV followed by Reglan and Benadryl after IV with resolution of nausea vomiting. She then also had resolution of crampy abdominal discomfort and tolerated p.o. Intake without emesis. Her headache improved. Labs: Normal CBC, normal basic metabolic panel, urine is negative and urine POC dip is positive only for ketones. Discussion: Findings consistent with viral illness with vomiting and dehydration. No red flag findings on her workup. Counseled patient regarding vomiting and gastroenteritis. Send her home on Zofran explain that she can have 8 mg dose if needed. She understands need to return emergency department should she develop any worsening of her symptoms despite treatment plan. - Data Points Laboratory Results: 08/01/18 22:12 POC Hgb 13.3 gm/dL gm/dL (12.6-16.3) POC Hct 39 % % (38-47) POC Sodium 142 mEq/L mEq/L (135-145) POC Potassium 3.4 mEq/L mEq/L (3.3-5.0) POC Chloride 104 mEq/L mEq/L (97-110) POC BUN 4 mg/dL L mg/dL (7-23) POC Creatinine 1.0 mg/dL mg/dL (0.6-1.0) POC Glucose 90 mg/dL mg/dL (70-100) Medications Given: Discontinued Medications Diphenhydramine HCl (Benadryl Injection) 25 mg IVP EDNOW ONE Stop: 08/01/18 21:55 Last Admin: 08/01/18 22:13 Dose: 25 mg Sodium Chloride (Ns) 1,000 mls @ 0 mls/hr IV EDNOW ONE; Wide Open PRN Reason: Protocol Stop: 08/01/18 21:42 Last Admin: 08/01/18 21:52 Dose: 1,000 mls Metoclopramide HCl (Reglan Injection) 5 mg IVP EDNOW ONE Stop: 08/01/18 21:54 Last Admin: 08/01/18 22:13 Dose: 5 mg Ondansetron HCl (Zofran Odt) 4 mg PO EDNOW ONE Stop: 08/01/18 21:53 Last Admin: 08/01/18 21:53 Dose: 4 mg Point of Care Test Results: CBC CBC Collection Date 08/01/18 CBC Collection Time 22:05 WBC 8.6 RBC 4.34 HGB 13.8 HCT 40.1 PLT 317 Neut # 7.7 Neut 89.3 LYMPH # 0.7 LYMPH 7.9 Other WBC # 0.2 Other WBC 2.8 MCV 92.4 Chemistry 08/01/18 22:12 POC Sodium 142 mEq/L mEq/L (135-145) POC Potassium 3.4 mEq/L mEq/L (3.3-5.0) POC Chloride 104 mEq/L mEq/L (97-110) POC BUN 4 mg/dL L mg/dL (7-23) POC Creatinine 1.0 mg/dL mg/dL (0.6-1.0) POC Glucose 90 mg/dL mg/dL (70-100) ISTAT H&H 08/01/18 22:12 POC Hgb 13.3 gm/dL gm/dL (12.6-16.3) POC Hct 39 % % (38-47) Departure - Departure Disposition: Home, Routine, Self-Care Clinical Impression: Dehydration Vomiting Qualifiers: Vomiting type: unspecified Vomiting Intractability: non-intractable Nausea presence: with nausea Qualified Code(s): R11.2 - Nausea with vomiting, unspecified Condition: Good Instructions: Acute Nausea and Vomiting (ED) Additional Instructions: Diagnosis: Vomiting 2. Dehydration Plan: Drink plenty fluids Light diet until you feel improved Zofran for nausea vomiting if needed Return for any significant worsening despite treatment plan Prescriptions: Ondansetron Odt [Zofran Odt] 4 - 8 mg PO Q4PRN PRN #4 tab PRN Reason: Vomiting
[2018-08-01 23:12] VITALS: BP 118/81
== END 2018-08-01 23:36 | disposition home or self-care (01) ==
LOC: CED 21:28
DX: R11.2 Nausea with vomiting, unspecified (principal); E86.0 Dehydration
CPT/HCPCS: 96361; 96374; 96375; 99284; J1200; J2765; 82435-PO; 82565-PO; 82947-PO; 84132-PO; 84295-PO; 84520-PO; 85014-PO